=== PATIENT | male | born 1990 | race Caucasian/White ===

== ENCOUNTER 2016-11-30 12:19 | Emergency (ER) | payer BC ==
[~2016-11-30] VITALS: Ht 165.1 cm; Wt 68.0 kg
[~2016-11-30 12:19] MED LIST: AMOXIL500 MG PO; AUGMENTIN 875 M1 TAB PO; CIPROFLOXACIN500 MG PO; EPIPEN 0.3MG0.3 MG; MOTRIN600 MG PO; MOTRIN800 MG PO; NAPROSYN500 MG PO; NKHM; NORCO 325 MG-51 TAB PO; OTIC CARE 1%-0.10 ML OT; REMERON15 MG PO; ROBITUSSIN DM120 ML PO; TRAMADOL HCL50 MG PO; VALTREX500 MG PO; VICODIN 5/500 505 MG PO; ZITHROMAX Z PA250 MG PO
[2016-11-30] MEDS ORDERED: PREDNISONE20 M1 PO (13:03)
[2016-11-30] MEDS ORDERED: BACTRIM DS 8001 TAB PO (13:03)
== END 2016-11-30 12:36 | disposition home or self-care (01) ==
LOC: ED 12:19
DX: L03.113 Cellulitis of right upper limb (principal); F17.200 Nicotine dependence, unspecified, uncomplicated; Z91.030 Bee allergy status

== ENCOUNTER 2016-12-31 08:01 | Emergency (ER) | payer BC ==
[~2016-12-31] VITALS: Ht 180.3 cm; Wt 72.6 kg
[~2016-12-31 08:01] MED LIST changes: +BACTRIM DS 8001 TAB PO; +PREDNISONE20 M1 PO
[2016-12-31] MEDS ORDERED: Motrin,Rufen400 MG PO (09:05)
[2016-12-31] MEDS ORDERED: CYCLOBENZAPRINE10 MG PO (09:05)
== END 2016-12-31 09:27 | disposition home or self-care (01) ==
LOC: ED 08:01
DX: S46.912A Strain of unspecified muscle, fascia and tendon at shoulder and upper arm level, left arm, initial encounter (principal); F17.200 Nicotine dependence, unspecified, uncomplicated; W18.39XA Other fall on same level, initial encounter; Y93.89 Activity, other specified; Y92.89 Other specified places as the place of occurrence of the external cause; Y99.8 Other external cause status

== ENCOUNTER 2017-08-31 09:29 | Inpatient (IN) | payer BC ==
[~2017-08-31] VITALS: Ht 175.3 cm; Wt 61.0 kg
[~2017-08-31 09:29] MED LIST changes: +CYCLOBENZAPRINE10 MG PO; +Motrin,Rufen400 MG PO
[2017-08-31 09:45] VITALS: BP 156/112
[2017-08-31 10:08] LABS: BASO % 0.3 % (0.0-1.0); EOS # 0.1 10*3/uL (0.0-0.4); EOS % 1.1 % (1.0-4.0); HEMATOCRIT 43.1 % (42.0-52.0); HEMOGLOBIN 14.9 g/dl (14.0-18.0); LYMPH # 1.6 10*3/uL (1.3-4.4); LYMPH % 20.3 % (27.0-41.0); MEAN CELL VOLUME 91.9 fl (80.0-94.0); MEAN CORPUSCULAR HGB 31.8 pg (27.0-31.0); MEAN CORPUSCULAR HGB CONC 34.6 g/dl (33.0-37.0); MEAN PLATELET VOLUME 8.9 fl (9.6-12.3); MONO % 12.4 % (3.0-9.0); NEUT # 5.2 10*3/uL (2.3-7.9); NEUT % 65.6 % (47.0-73.0); PLATELET COUNT AUTOMATED 226 10*3/uL (130-400); RED BLOOD COUNT 4.69 10*6/uL (4.50-5.90); RED CELL DISTRI WIDTH 12.7 % (0-14.5); WHITE BLOOD COUNT 7.8 10*3/uL (4.8-10.8)
[2017-08-31 10:17] LABS: ACT PARTIAL THROMBO TIME 24.3 SECONDS (20.8-31.5); INTERNATIONAL NORM RATIO 0.9 (2.0-3.5)
--- NOTE | 2017-08-31 10:20 | NUR ---
XOFRAN NOT EFFECTED. PT ACTIVELY VOMITING THIS TIME. DR CAAL AWARE. SEE NEW ORDERS.
[2017-08-31 10:25] LABS: ALBUMIN 3.8 gm/dl (3.1-4.5); ALKALINE PHOSPHATASE 83 U/L (45-117); BUN 13 mg/dl (7-24); CHLORIDE 108 mmol/L (98-107); CREATININE 0.75 mg/dL (0.70-1.30); LIPASE 115 U/L (73-393); SGOT/AST 15 IU/L (3-35); SGPT/ALT 26 U/L (12-78); SODIUM 142 mmol/L (136-145); TOTAL PROTEIN 6.9 gm/dL (6.4-8.2)
[2017-08-31 10:50] LABS: BILIRUBIN NEGATIVE (NEGATIVE); BLOOD NEGATIVE (NEGATIVE); COLOR YELLOW (YELLOW); GLUCOSE NEGATIVE (NEGATIVE); KETONE NEGATIVE (NEGATIVE); LEUKO ESTERASE NEGATIVE (NEGATIVE); NITRITE NEGATIVE (NEGATIVE); SPECIFIC GRAVITY 1.015 (1.005-1.030); UROBILINOGEN 0.2 E.U./dl (0.2-1.0)
--- NOTE | 2017-08-31 10:55 | NUR ---
IV SITE DC'D AT THIS TIME DUE TO CATHETER DISPLACED.
--- NOTE | 2017-08-31 11:00 | NUR ---
PT STATES THAT MEDICATIONS ARE EFFECTIVE AT THIS TIME. PT IS LAYING IN BED RESTING. FAMILY AT BEDSIDE. WILL CONTINUE TO MONITOR.
[2017-08-31 11:03] LABS: CLARITY CLOUDY (CLEAR)
[2017-08-31 11:05] LABS: BACTERIA 1+
[2017-08-31 11:31] LABS: URINE AMPHETAMINES < 1000 (1000ng/ml); URINE BARBITURATES < 200 (200ng/ml); URINE BENZODIAZEPINES < 200 (200ng/ml); URINE CANNABINOIDS (THC) > 50 (50ng/ml); URINE COCAINE < 300 (300ng/ml); URINE METHADONE < 300 (300ng/ml); URINE OPIATES < 300 (300ng/ml)
[2017-08-31 11:36] LABS: URINE PHENCYCLIDINE < 25 (25ng/ml)
[2017-08-31 11:58] LABS: ETHYL ALCOHOL < 3.0 mg/dl (<3)
[2017-08-31 12:00] VITALS: BP 140/85
--- NOTE | 2017-08-31 12:00 | NUR ---
A 26, admitted to , under the services of LINCOLN Talley DO with a diagnosis of ACUTE NARCOTIC WITHDRAWAL. Chief complaint is NAUSEA/VOMITING. Patient arrived via wheel chair from ER. Monitor applied. Initial assessment completed. Vital signs taken and recorded. LINCOLN TALLEY DO notified of admission to the unit. Orders received. See assessment for past medical history, medications and allergies. Patient and/or family oriented to unit. [facility] visitation policy reviewed. Clothing/patient valuable form completed. ASSESSMENT COMPLETE. SKIN INTACT WITH NO WOUNDS. REFUSES FLU VACCINATION. NOT A CANDIDATE FOR PNEUMONIA VACCINATION. NO HOME MEDICATIONS. ENE MARIEE
--- NOTE | 2017-08-31 12:24 | NUR ---
ELZA GARCIA IN TO SEE PATIENT.
--- NOTE | 2017-08-31 12:30 | NUR ---
ADMINISTERED IV ZOFRAN R/T PATIENT COMPLAINTS OF NAUSEA. WILL MONITOR FOR EFFECTIVENESS.
--- NOTE | 2017-08-31 13:00 | NUR ---
PATIENT WAS ASSESSED AND MEETS [facility]ITER[facility] FOR [facility]. PATIENT STATED THAT HE WANTS TO SEEK AFTERCARE TREATMENT. [place] STAFF WILL FOLLOW-UP WITH PATIENT TO CONTINUE TO WORK WITH PATIENT ON HIS AFTERCARE PLAN. CRISTI CRYSTAL B.A. SEMIAUTOMATIC STITCHER OPERATOR
--- NOTE | 2017-08-31 14:00 | NUR ---
CALDERATiera BERTRAND TO REQUEST MEDICATION PER PT FOR C/O NAUSEA. ADMINISTERED IV PHENEGRAN. WILL
--- NOTE | 2017-08-31 14:48 | NUR ---
Patient resting quietly with no c/o discomfort. Respirations easy and regular. Vital signs stable. No overt distress. ENE MARIEE
[2017-08-31 16:00] VITALS: BP 125/72
--- NOTE | 2017-08-31 16:23 | NUR ---
PATIENT HAS EXPRESSED INTEREST IN GOING TO INPATIENT TREATMENT. [place] STAFF MADE REFERRAL TO [facility]. THE TREATMENT RELIEF CAPTAIN FROM [facility] SPOKE TO PATIENT ABOUT THEIR SERVICES-PER PATIENT REQUEST. [place] STAFF WILL FOLLOW-UP WITH PATIENT TO WORK ON HIS AFTERCARE PLAN. CRISTI CRYSTAL B.A. ART EDITOR
--- NOTE | 2017-08-31 18:24 | NUR ---
DR TINOCO IN TO SEE PT. PER DR TINOCO NO SURGICAL INTERVENTION NECESSARY. ORDERED AN IV BANANA BAG FOR PT.
[2017-08-31 20:00] VITALS: BP 113/65
--- NOTE | 2017-08-31 20:47 | NUR ---
Patient reports the following symptoms of withdrawal: body aches, leg pain, nausea and cravings. Patient given scheduled/PRN medication to control withdrawal symptoms. Close observation will be maintained.
--- NOTE | 2017-08-31 21:45 | NUR ---
Patient resting. Responding to scheduled medications with fewer complaints of pain and anxiety.
--- NOTE | 2017-08-31 23:35 | NUR ---
PATIENT RESTING QUIETLY IN BED. FAMILY MEMBER AT BEDSIDE. NO SXS OF DISTRESS. NO COMPLAINTS AT THIS TIME. FLUIDS MAINTAINED PER ORDER. CALL LIGHT IN REACH.
[2017-09-01] VITALS: BP 109/76
--- NOTE | 2017-09-01 01:30 | NUR ---
MEDICATED WITH PRN TRAZADONE ORDERD FOR C/O INSOMNIA
--- NOTE | 2017-09-01 01:45 | NUR ---
MVI BAG DONE AT THIS TIME. PATIENT STATES THE BAG OF FLUIDS MADE HIM "FEEL SO MUCH BETTER" STATES HE HAS MORE ENERGY NOW AND DOESNT FEEL "CRAPPY" WHEN HE CAME IN. IV REMOVED AND PRESSURE DRESSING APPLIED.
--- NOTE | 2017-09-01 02:19 | NUR ---
SLEEPING, NO SXS OF DISTRESS. CALL LIGHT IN REACH.
--- NOTE | 2017-09-01 03:40 | NUR ---
24 HR CHART CHECK COMPLETE
[2017-09-01 04:00] VITALS: BP 103/48
--- NOTE | 2017-09-01 04:08 | NUR ---
SLEPEING, RESPIRATIONS EASY/REG. NO SXS OF DISTRESS. CALL LIGHT IN REACH.
--- NOTE | 2017-09-01 07:30 | NUR ---
PT AWAKE. ASSESSMENT COMPLETE. ADMINISTERED PO ZOFRAN AND BENTYL PER PT REQUEST FOR STOMACH CRAMPING AND NAUSEA. WILL MONITOR FOR EFFECTIVENESS.
[2017-09-01 08:00] VITALS: BP 118/74
--- NOTE | 2017-09-01 08:30 | NUR ---
PT STATES MEDICATIONS EFFECTIVE. BED LOW. CALL [place] IN REACH
--- NOTE | 2017-09-01 10:00 | NUR ---
ADMINISTERED PO VISTARIL PER PT REQUEST FOR ANXIETY. WILL MONITOR FOR EFFECTIVENESS
--- NOTE | 2017-09-01 10:50 | NUR ---
PT STATES VISTARIL EFFECTIVE. PT COMPLAINT OF RESTLESS LEGS. ADMINISTERED REQUIP. WILL MONITOR
[2017-09-01 12:00] VITALS: BP 124/70
--- NOTE | 2017-09-01 15:00 | NUR ---
PATIENT DECIDED THAT HE WANTS THE [facility] SHOT FOR HIS AFTERCARE PLAN. PATIENT IS SET UP FOR APPOINTMENT ON September AT 2:00PM AT [facility]. PATIENT AGREES AND UNDERSTANDS HIS PLAN AT DISCHARGE. CRISTI CRYSTAL B.A. SHIP ERECTOR
--- NOTE | 2017-09-01 15:45 | NUR ---
ADMINISTERED PO ZOFRAN AND BENTYL PER PT REQUEST FOR NAUSEA AND STOMACH CRAMPING. WILL MONITOR FOR EFFECTIVENESS. FAMILY AT THE BEDSIDE
[2017-09-01 16:00] VITALS: BP 133/81
--- NOTE | 2017-09-01 17:45 | NUR ---
Patient resting. Responding to scheduled medications with fewer complaints of CRAMPING AND NAUSEA
[2017-09-01 20:00] VITALS: BP 144/96
--- NOTE | 2017-09-01 20:00 | NUR ---
ASSUMED CARE OF PATIENT. ASSESSMENT COMPLETE. DENIES FURTHER NEEDS AT THIS TIME. CALL LIGHT IN REACH. WILL CONTINUE TO MONITOR.
--- NOTE | 2017-09-01 22:37 | NUR ---
MEDICATED WITH PRN REQUIP, ROBAXIN, AND TRAZADONE FOR C/O RESTLESS LEGS, MUSCLE ACHES, AND HELP TO SLEEP
[2017-09-02] VITALS: BP 112/77
--- NOTE | 2017-09-02 02:15 | NUR ---
SLEEPING. NO SIGNS OF DISTRESS NOTED. CALL LIGHT IN REACH. WILL CONTINUE TO MONITOR.
--- NOTE | 2017-09-02 06:50 | NUR ---
MEDICATED WITH PRN MOTRIN, BENTYL, ROBAXIN, AND VISTARIL FOR C/O ABDOMINAL PAIN, ABDOMINAL CRAMPS, MUSCLE ACHES, AND ANXIETY
[2017-09-02 08:00] VITALS: BP 127/83
--- NOTE | 2017-09-02 13:25 | NUR ---
Patient resting. Responding to scheduled medications with fewer complaints of pain and anxiety.
[2017-09-02 16:00] VITALS: BP 115/80
[2017-09-02 20:00] VITALS: BP 140/83
--- NOTE | 2017-09-02 20:17 | NUR ---
ASSUMED CARE OF PT. PT SITTING IN CHAIR, LIGHTS ON, TV ON. PT VERY TALKATIVE AT THIS TIME AND VOICES HE WANTS "TO LEAVE THE DRUG USE IN THE PAST AND GET CLEAN." SEE SHIFT ASSESSMENT. PT VOICES NO CONCERNS AT THIS TIME. PRN MEDICATIONS DISCUSSED. CALL LIGHT IN REACH.
--- NOTE | 2017-09-02 21:59 | NUR ---
PT REQUESTED MEDICATIONS FOR MULTIPLE WITHDRAWAL SYMPTOMS INCLUDING MUSCLE SPASMS/PAIN, RESTLESS LEGS, ANXIETY, INSOMNIA. PRN MEDICATIONS GIVEN. WILL MONITOR FOR EFFECTIVENESS.
--- NOTE | 2017-09-02 22:55 | NUR ---
PT REQUESTED MEDICATION FOR INSOMNIA. 2ND TRAZADONE GIVEN. WILL MONITOR FOR EFFECTIVENESS. PER PT, ALL OTHER COMPLAINTS/WITHDRAWAL SYMPTOMS HAVE DECREASED WITH PRN MEDICATIONS. OTHER PRN MEDICATIONS WERE EFFECTIVE. PT IS FEELING "RELAXED".
--- NOTE | 2017-09-02 23:48 | NUR ---
PT IN BED, LIGHTS OFF, RESTING WITH EYES CLOSED. RESPIRATIONS EASY AND UNLABORED. NO DISTRESS NOTED. CALL LIGHT WITHIN REACH.
[2017-09-03] VITALS: BP 93/48
--- NOTE | 2017-09-03 03:12 | NUR ---
PT IN BED, LIGHTS OFF WITH EYES CLOSED. RESPIRATIONS EASY AND UNLABORED. CALL LIGHT WITHIN REACH. NO DISTRESS NOTED.
--- NOTE | 2017-09-03 05:02 | NUR ---
24HR CHART CHECK COMPLETED.
--- NOTE | 2017-09-03 05:48 | NUR ---
PT IN BED, LIGHTS OFF, SLEEPING. EASILY AROUSED. TOLERATED MEDICATIONS WELL. VOICES NO CONCERNS AT THIS TIME. CALL LIGHT WITHIN REACH.
[2017-09-03 06:34] LABS: BASO % 0.5 % (0.0-1.0); EOS # 0.2 10*3/uL (0.0-0.4); EOS % 2.7 % (1.0-4.0); HEMATOCRIT 41.7 % (42.0-52.0); HEMOGLOBIN 14.2 g/dl (14.0-18.0); LYMPH % 38.9 % (27.0-41.0); MEAN CELL VOLUME 92.1 fl (80.0-94.0); MEAN CORPUSCULAR HGB 31.3 pg (27.0-31.0); MEAN CORPUSCULAR HGB CONC 34.1 g/dl (33.0-37.0); MEAN PLATELET VOLUME 9.2 fl (9.6-12.3); MONO % 13.3 % (3.0-9.0); NEUT # 3.4 10*3/uL (2.3-7.9); NEUT % 44.3 % (47.0-73.0); PLATELET COUNT AUTOMATED 231 10*3/uL (130-400); RED BLOOD COUNT 4.53 10*6/uL (4.50-5.90); RED CELL DISTRI WIDTH 12.6 % (0-14.5); WHITE BLOOD COUNT 7.7 10*3/uL (4.8-10.8)
[2017-09-03 06:57] LABS: CREATININE 0.73 mg/dL (0.70-1.30)
[2017-09-03 08:00] VITALS: BP 100/60
--- NOTE | 2017-09-03 08:00 | NUR ---
Patient resting. Responding to scheduled medications with fewer complaints of pain and anxiety.
--- NOTE | 2017-09-03 08:39 | NUR ---
Patient reports the following symptoms of withdrawal: body aches, leg pain, nausea and cocaine cravings. Patient given scheduled/PRN medication to control withdrawal symptoms. Close observation will be maintained.
--- NOTE | 2017-09-03 10:32 | NUR ---
Patient resting. Responding to scheduled medications with fewer complaints of pain and anxiety.
[2017-09-03] MEDS ORDERED: ATARAX,VISTARIL50 MG PO (11:56)
[2017-09-03] MEDS ORDERED: DICYCLOMINE HCL20 MG PO (11:56)
[2017-09-03] MEDS ORDERED: TRAZODONE50 MG PO (11:56)
[2017-09-03 12:00] VITALS: BP 108/64
--- NOTE | 2017-09-03 12:20 | NUR ---
DISCHARGED TO HOME IN CARE OF FAMILY. INSTRUCTIONS AND PERSCRIPTIONS REVIEWED WITH PT.
== END 2017-09-03 12:20 | disposition home or self-care (01) | DRG 897 ==
LOC: ED 09:29 → 4E 11:28 → EDHOLD 11:28 → 4E 11:40
PROVIDERS: Emergency Medicine; ADMIT Internal Medicine
DX: F11.23 Opioid dependence with withdrawal (principal); F17.210 Nicotine dependence, cigarettes, uncomplicated; I10 Essential (primary) hypertension; Z79.899 Other long term (current) drug therapy; Z83.49 Family history of other endocrine, nutritional and metabolic diseases

== ENCOUNTER → 2017-12-21 | Emergency (ER) | payer BC ==
[~2017-12-21] VITALS: Wt 68.0 kg
[~2017-12-21] MED LIST changes: +ATARAX,VISTARIL50 MG PO; +DICYCLOMINE HCL20 MG PO; +TRAZODONE50 MG PO
== END ==
LOC: ED 14:01
DX: T50.991A Poisoning by other drugs, medicaments and biological substances, accidental (unintentional), initial encounter (principal); R40.20 Unspecified coma; Y92.89 Other specified places as the place of occurrence of the external cause

== ENCOUNTER 2019-04-24 12:08 | Emergency (ER) | payer SELFPAY ==
[~2019-04-24] VITALS: Ht 175.2 cm; Wt 71.2 kg
[2019-04-24] MEDS ORDERED: AMOXICILLIN500 M3 PO (12:44)
== END 2019-04-24 12:49 | disposition home or self-care (01) ==
LOC: ED 12:08
DX: K14.0 Glossitis (principal); F17.200 Nicotine dependence, unspecified, uncomplicated

== ENCOUNTER 2019-11-15 15:28 | Emergency (ER) | payer SELFPAY ==
[~2019-11-15] VITALS: Ht 175.2 cm; Wt 68.0 kg
[~2019-11-15 15:28] MED LIST changes: +AMOXICILLIN500 M3 PO
[2019-11-15 16:08] LABS: BILIRUBIN NEGATIVE (NEGATIVE); BLOOD NEGATIVE (NEGATIVE); CLARITY CLEAR (CLEAR); COLOR YELLOW (YELLOW); GLUCOSE NEGATIVE (NEGATIVE); KETONE NEGATIVE (NEGATIVE); LEUKO ESTERASE NEGATIVE (NEGATIVE); NITRITE NEGATIVE (NEGATIVE); PH 7.5 (5.0-9.0); SPECIFIC GRAVITY 1.015 (1.005-1.030); UROBILINOGEN 0.2 E.U./dl (0.2-1.0)
[2019-11-15 16:17] LABS: BACTERIA TRACE; EPITHELIAL CELLS 0-2; RBC 0-2 rbc/hpf (0-2); WBC 0-2 wbc/hpf (0-5)
[2019-11-16 18:04] LABS: GONOCOCCUS BY NAA Negative (Negative)
== END 2019-11-15 17:04 | disposition home or self-care (01) ==
LOC: ED 15:28
PROVIDERS: Nurse Practitioner Family
DX: Z20.2 Contact with and (suspected) exposure to infections with a predominantly sexual mode of transmission (principal); Z72.0 Tobacco use

== ENCOUNTER → 2019-11-27 | Emergency (ER) | payer SELFPAY | LOC: ED 21:20 | DX: R53.83 Other fatigue (principal); R42 Dizziness and giddiness; R45.1 Restlessness and agitation; F31.9 Bipolar disorder, unspecified; F19.90 Other psychoactive substance use, unspecified, uncomplicated; F14.90 Cocaine use, unspecified, uncomplicated; F12.90 Cannabis use, unspecified, uncomplicated; F17.200 Nicotine dependence, unspecified, uncomplicated; Z53.29 Procedure and treatment not carried out because of patient's decision for other reasons; Z79.2 Long term (current) use of antibiotics; Z79.899 Other long term (current) drug therapy ==

== ENCOUNTER 2020-02-20 09:19 | Emergency (ER) | payer OTHER ==
[~2020-02-20] VITALS: Ht 175.2 cm; Wt 74.8 kg
[2020-02-20] MEDS ORDERED: ROBAXIN-750750 MG PO (11:02)
[2020-02-20] MEDS ORDERED: IBUPROFEN600 MG PO (11:02)
== END 2020-02-20 12:12 | disposition home or self-care (01) ==
LOC: ED 09:19
DX: S13.4XXA Sprain of ligaments of cervical spine, initial encounter (principal); S23.3XXA Sprain of ligaments of thoracic spine, initial encounter; V49.49XA Driver injured in collision with other motor vehicles in traffic accident, initial encounter; Y93.89 Activity, other specified; Y92.481 Parking lot as the place of occurrence of the external cause; Y99.8 Other external cause status

== ENCOUNTER 2020-10-08 07:07 | Emergency (ER) | payer OTHER ==
[~2020-10-08 07:07] MED LIST changes: +IBUPROFEN600 MG PO; +ROBAXIN-750750 MG PO
== END 2020-10-08 09:25 | disposition home or self-care (01) ==
LOC: ED 07:07
DX: M79.671 Pain in right foot (principal); F17.200 Nicotine dependence, unspecified, uncomplicated; F12.90 Cannabis use, unspecified, uncomplicated; X50.1XXA Overexertion from prolonged static or awkward postures, initial encounter; Y93.89 Activity, other specified; Y92.89 Other specified places as the place of occurrence of the external cause; Y99.9 Unspecified external cause status

== ENCOUNTER 2020-12-21 11:21 | Emergency (ER) | payer OTHER ==
[~2020-12-21] VITALS: Wt 68.0 kg
== END 2020-12-21 12:54 | disposition home or self-care (01) ==
LOC: ED 11:21
DX: S61.210A Laceration without foreign body of right index finger without damage to nail, initial encounter (principal); F17.200 Nicotine dependence, unspecified, uncomplicated; Z96.22 Myringotomy tube(s) status; W26.0XXA Contact with knife, initial encounter; Y93.89 Activity, other specified; Y92.89 Other specified places as the place of occurrence of the external cause; Y99.8 Other external cause status

== ENCOUNTER 2021-04-13 18:39 | Emergency (ER) | payer OTHER | END 2021-04-13 19:09 | disposition left against medical advice (07) | LOC: ED 18:39 | DX: R07.89 Other chest pain (principal); Z53.21 Procedure and treatment not carried out due to patient leaving prior to being seen by health care provider ==

== ENCOUNTER → 2021-06-02 | Outpatient (CLI) | payer OTHER | END | disposition home or self-care (01) | LOC: COVID19 15:23 | PROVIDERS: ATTEND Family Medicine | DX: Z11.52 Encounter for screening for COVID-19 (principal) ==

== ENCOUNTER → 2021-08-13 | Outpatient (CLI) | payer OTHER | END | disposition home or self-care (01) | LOC: CARD 12:37 | PROVIDERS: ATTEND Nurse Practitioner Family | DX: F32.0 Major depressive disorder, single episode, mild (principal) ==

== ENCOUNTER 2021-12-06 20:23 | Emergency (ER) | payer OTHER ==
[~2021-12-06] VITALS: Ht 172.7 cm; Wt 68.0 kg
== END 2021-12-06 20:56 | disposition home or self-care (01) ==
LOC: ED 20:23
DX: T16.2XXA Foreign body in left ear, initial encounter (principal); Y92.89 Other specified places as the place of occurrence of the external cause

== ENCOUNTER → 2022-04-05 | Outpatient (CLI) | payer OTHER ==
[2022-04-05 08:47] LABS: HEMATOCRIT 44.2 % (42.0-52.0); MEAN CELL VOLUME 90.4 fl (80.0-94.0); MEAN CORPUSCULAR HGB 30.5 pg (27.0-31.0); MEAN CORPUSCULAR HGB CONC 33.7 g/dl (33.0-37.0); MEAN PLATELET VOLUME 8.8 fl (9.6-12.3); RED BLOOD COUNT 4.89 10*6/uL (4.50-5.90); WHITE BLOOD COUNT 5.8 10*3/uL (4.8-10.8)
[2022-04-05 09:07] LABS: BUN 11 mg/dl (7-24); CHLORIDE 108 mmol/L (98-107); POTASSIUM 4.7 mmol/L (3.5-5.1); SODIUM 141 mmol/L (136-145)
[2022-04-05 09:11] LABS: ALKALINE PHOSPHATASE 78 U/L (45-117); CHOLESTEROL 139 mg/dL (<200); CPK 163 U/L (39-308); CREATININE 0.66 mg/dL (0.70-1.30); LDL CHOLESTEROL 57 mg/dL (9-159); SGOT/AST 19 IU/L (3-35); SGPT/ALT 24 U/L (12-78); TOTAL PROTEIN 6.9 gm/dL (6.4-8.2); TRIGLYCERIDES 92 mg/dl (<150)
[2022-04-05 09:42] LABS: VITAMIN D, 25-HYDROXY 61.4 ng/mL (30-100)
== END | disposition home or self-care (01) ==
LOC: LAB 08:28
PROVIDERS: ATTEND Family Medicine
DX: Z00.00 Encounter for general adult medical examination without abnormal findings (principal); R53.83 Other fatigue; E55.9 Vitamin D deficiency, unspecified; M79.10 Myalgia, unspecified site; M25.50 Pain in unspecified joint

== ENCOUNTER 2022-12-22 07:15 | Emergency (ER) | payer OTHER ==
[~2022-12-22] VITALS: Ht 177.8 cm; Wt 65.8 kg
[2022-12-22] MEDS ORDERED: IBU800 M2 PO (07:33)
== END 2022-12-22 07:42 | disposition home or self-care (01) ==
LOC: ED 07:15
DX: M77.8 Other enthesopathies, not elsewhere classified (principal); F12.90 Cannabis use, unspecified, uncomplicated; F31.9 Bipolar disorder, unspecified

== ENCOUNTER → 2023-05-11 | Outpatient (CLI) | payer OTHER ==
[~2023-05-11] MED LIST changes: +IBU800 M2 PO
[2023-05-11 13:30] LABS: HEMATOCRIT 44.7 % (42.0-52.0); MEAN CELL VOLUME 88.2 fl (80.0-94.0); MEAN CORPUSCULAR HGB CONC 35.1 g/dl (33.0-37.0); MEAN PLATELET VOLUME 8.9 fl (9.6-12.3); RED BLOOD COUNT 5.07 10*6/uL (4.50-5.90); RED CELL DISTRI WIDTH 12.3 % (0-14.5); WHITE BLOOD COUNT 5.6 10*3/uL (4.8-10.8)
[2023-05-11 13:56] LABS: ALKALINE PHOSPHATASE 71 U/L (46-116); BUN 8 mg/dl (9-23); CHLORIDE 107 mmol/L (98-107); CHOLESTEROL 131 mg/dL (<200); LDL CHOLESTEROL 61 mg/dL (9-159); POTASSIUM 4.2 mmol/L (3.4-5.1); SGPT/ALT 13 U/L (10-49); TOTAL PROTEIN 7.2 gm/dL (6.0-8.0); TRIGLYCERIDES 53 mg/dl (<150)
== END | disposition home or self-care (01) ==
LOC: LAB 13:14
PROVIDERS: ATTEND Family Medicine
DX: Z00.00 Encounter for general adult medical examination without abnormal findings (principal)

== ENCOUNTER 2023-10-18 12:10 | Emergency (ER) | payer OTHER ==
[~2023-10-18] VITALS: Ht 175.2 cm; Wt 66.2 kg
[2023-10-18] MEDS ORDERED: ACETAMINOPHEN 325 MG TAB PO ONE (13:00)
== END 2023-10-18 14:31 | disposition home or self-care (01) ==
LOC: ED 12:10
DX: S83.91XA Sprain of unspecified site of right knee, initial encounter (principal); F31.9 Bipolar disorder, unspecified; F12.90 Cannabis use, unspecified, uncomplicated; Z98.890 Other specified postprocedural states; Z72.0 Tobacco use; X50.1XXA Overexertion from prolonged static or awkward postures, initial encounter; Y93.89 Activity, other specified; Y92.89 Other specified places as the place of occurrence of the external cause; Y99.8 Other external cause status

== ENCOUNTER 2025-05-12 17:10 | Emergency (ER) | payer BC, OTHER ==
[~2025-05-12] VITALS: Ht 175.2 cm; Wt 65.8 kg
[2025-05-12] MEDS ORDERED: PREDNISONE10 MG PO (18:05)
== END 2025-05-12 19:25 | disposition home or self-care (01) ==
LOC: ED 17:10
DX: R20.0 Anesthesia of skin (principal); R20.2 Paresthesia of skin; M79.642 Pain in left hand; R22.32 Localized swelling, mass and lump, left upper limb; F17.200 Nicotine dependence, unspecified, uncomplicated; Z96.22 Myringotomy tube(s) status

== ENCOUNTER 2025-08-12 13:56 | Emergency (ER) | payer SELFPAY ==
[~2025-08-12] VITALS: Wt 63.5 kg
[~2025-08-12 13:56] MED LIST changes: +PREDNISONE10 MG PO
[2025-08-12] MEDS ORDERED: Lidocaine Hydrochloride 2% 10 ML AMP SC ONE (14:15)
[2025-08-12] MEDS ORDERED: Bacitracin Zinc 14 GM TUBE T ONE (14:15)
[2025-08-12] MEDS ORDERED: CEPHALEXIN 500 MG CAP PO ONE (14:15)
[2025-08-12] MEDS ORDERED: CEPHALEXIN500 M1 PO (15:25)
== END 2025-08-12 15:30 | disposition home or self-care (01) ==
LOC: ED 13:56
DX: S61.212A Laceration without foreign body of right middle finger without damage to nail, initial encounter (principal); F31.9 Bipolar disorder, unspecified; F19.10 Other psychoactive substance abuse, uncomplicated; F17.200 Nicotine dependence, unspecified, uncomplicated; X58.XXXA Exposure to other specified factors, initial encounter; Y93.89 Activity, other specified; Y92.098 Other place in other non-institutional residence as the place of occurrence of the external cause; Y99.8 Other external cause status